=== PATIENT | female | born 1990 | race Caucasian/White ===

== ENCOUNTER 2016-07-18 23:45 | Emergency (ER) | payer OTHER ==
[~2016-07-18 23:45] MED LIST: AMOXICILLIN875 MG PO; MACROBID100 MG DOB; NO MEDICATIONS; NORCO1 TAB 10/3 DOB; PEPCID AC20 M2 PO; PRENATAL PO; PRENATAL1 TA1; PRILOSEC PO; ZOFRAN ODT PO; ZOFRAN ODT4 MG/UDTAB DOB
== END 2016-07-19 00:27 | disposition home or self-care (01) ==
LOC: SED 23:45
DX: J06.9 Acute upper respiratory infection, unspecified (principal)
CPT/HCPCS: 87651; 99282

== ENCOUNTER 2016-07-27 22:17 | Emergency (ER) | payer OTHER | END 2016-07-27 22:20 | disposition home or self-care (01) | LOC: CFTX 22:17 | DX: S61.211A Laceration without foreign body of left index finger without damage to nail, initial encounter (principal); Z23 Encounter for immunization; W45.8XXA Other foreign body or object entering through skin, initial encounter; Y92.009 Unspecified place in unspecified non-institutional (private) residence as the place of occurrence of the external cause | CPT/HCPCS: 90471; 90715; 99283; J2930 ==

== ENCOUNTER 2016-08-02 22:10 | Emergency (ER) | payer OTHER ==
--- NOTE | ~2016-08-02 | CR157 ---
[facility] A Service of [facility] & [facility] RADIOLOGY TEXT RESULTS PATIENT: ALEXA BACK LOCATION: CFTX : 90 UNIT #: [id number] AGE: [address]: Le Son MD SEX: F ORDER DR: [id number] [facility] [address] [place], [place] [address] [id number] E MR#: [id number] Acc #: [id number] NAME: ALEXA BACK : 1990 SEX: F STUDY DATE/TIME: 08/02/2016 22:37 UNIT: [facility] ROOM: STUDY DESCRIPTION: CR Humerus Min 2 View Rt Attending Physician: Le Son M.D. Ordering Physician: Damian Holley D.O. Primary Care Physician: Rosie Grullon M.D. MEDICAL IMAGING REPORT This report is preliminary unless electronic signature is present EXAM Right humerus HISTORY Right upper arm pain, one week beginning 1 week ago. History of tetanus shot. FINDINGS There is no evidence of fracture, dislocation, or radiopaque foreign body. No focal bone lesions are seen. IMPRESSION Negative right humerus. Dictated by... Annabelle Cast M.D. THIS IS AN ELECTRONICALLY VERIFIED REPORT Annabelle Cast M.D. at 08/03/2016 5:48 AM DORITA/jennifer TD: 08/03/2016 05:10 JOB #: [id number] MEDICAL IMAGING REPORT Page 1 of 1 COPY
--- NOTE | ~2016-08-02 | US140 ---
[facility] A Service of [facility] & [facility] RADIOLOGY TEXT RESULTS PATIENT: ALEXA BACK LOCATION: CFTX : 90 UNIT #: [id number] AGE: [address]: Le Son MD SEX: F ORDER DR: [id number] [facility] [address] [place], [place] [address] [id number] E MR#: [id number] Acc #: [id number] NAME: ALEXA BACK : 1990 SEX: F STUDY DATE/TIME: 08/02/2016 22:51 UNIT: [facility] ROOM: STUDY DESCRIPTION: [facility] [place] [place] [employer] Attending Physician: Le Son M.D. Ordering Physician: Damian Holley D.O. Primary Care Physician: Rosie Grullon M.D. MEDICAL IMAGING REPORT This report is preliminary unless electronic signature is present EXAM Right upper extremity venous Doppler HISTORY Right upper extremity pain, history of a tetanus shot last week. FINDINGS 2-D and Doppler evaluation of the right upper extremity demonstrates normal flow and compressibility of the superficial and deep veins of the right upper extremity. No evidence of venous thrombosis. IMPRESSION Normal right upper extremity venous Doppler. Dictated by... Annabelle Cast M.D. THIS IS AN ELECTRONICALLY VERIFIED REPORT Annabelle Cast M.D. at 08/04/2016 10:35 PM DORITA/jennifer TD: 08/03/2016 05:59 JOB #: [id number] MEDICAL IMAGING REPORT Page 1 of 1 COPY
== END 2016-08-02 23:50 | disposition home or self-care (01) ==
LOC: CFTX 22:10
DX: M79.601 Pain in right arm (principal)
CPT/HCPCS: 73060; 84703; 93971; 99284

== ENCOUNTER 2016-08-09 21:39 | Emergency (ER) | payer OTHER ==
[2016-08-09 23:40] LABS: INFLUENZA A NEG (NEG); INFLUENZA B NEG (NEG)
== END 2016-08-10 00:48 | disposition home or self-care (01) ==
LOC: SED 21:39
PROVIDERS: Nurse Practitioner
DX: J06.9 Acute upper respiratory infection, unspecified (principal)
CPT/HCPCS: 87651; 87804; 99283

== ENCOUNTER 2016-10-26 15:36 | Emergency (ER) | payer OTHER ==
[2016-10-26 16:50] LABS: URINE SOURCE CLEAN CATCH
[2016-10-26 16:53] LABS: BASOPHIL% 0.5 % (0-2.5); EOSINOPHIL# 0.1 X10e3 (0-0.7); EOSINOPHIL% 0.8 % (0.0-7.0); HEMATOCRIT 39.7 % (35.0-45.0); HEMOGLOBIN 13.5 gm/dL (12.0-16.0); LYMPHOCYTE# 2.4 X10e3 (1.0-3.5); LYMPHOCYTE% 34.7 % (17.0-45.0); MEAN CELL VOLUME 89.5 FL (83-96); MEAN CORPUSCULAR HEMOGLOBIN 30.5 PG (28-34); MEAN CORPUSCULAR HGB CONC 34.1 g/dL (30-36); MONOCYTE# 0.4 X10e3 (0-1.0); NEUTROPHIL# 4.1 X10e3 (1.5-7.1); PLATELET COUNT 219 X10e3 (140-420); RED BLOOD COUNT 4.43 X10e (3.90-5.30); RED CELL DISTRIBUTION WIDTH 13.3 % (11.0-15.5)
[2016-10-26 17:00] LABS: URINE APPEARANCE HAZY; URINE BILIRUBIN NEG (NEG); URINE BLOOD NEG (NEG); URINE COLOR YELLOW; URINE GLUCOSE NEG (NORM); URINE KETONE NEG (NEG); URINE LEUKOCYTE ESTERASE TRACE (NEG); URINE NITRATE NEG (NEG); URINE PROTEIN NEG (NEG); URINE SPECIFIC GRAVITY 1.015 (1.003-1.035)
[2016-10-26 17:03] LABS: DIFF IND NO
[2016-10-26 17:04] LABS: MICRO INDICATED? YES
[2016-10-26 17:08] LABS: CULTURE INDICATED? YES; URINE BACTERIA NEG (NEG); URINE RBC 0-2 /[HPF] (0-2); URINE SQUAMOUS EPITHELIAL CELL MODERATE /[HPF]
[2016-10-26 17:09] LABS: URINE AMORPHOUS SEDIMENT AMORP PHOSPHATES
[2016-10-26 17:19] LABS: ALBUMIN SERUM 4.1 g/dL (3.5-5.0); ALKALINE PHOSPHATASE 55 U/L (32-92); ALT (SGPT) 13 U/L (10-40); AMYLASE 23 U/L (0-46); AST (SGOT) 13 U/L (10-42); BILIRUBIN,TOTAL 0.7 mg/dL (0.2-2.0); BLOOD UREA NITROGEN 16 mg/dL (9-23); CALCIUM SERUM 8.9 mg/dL (8.4-10.2); CARBON DIOXIDE 28 mmol/L (22-31); CHLORIDE 106 mmol/L (100-111); CREATININE SERUM 0.5 mg/dL (0.6-1.4); GLOM FILT RATE Estimated 133.6 mL/min (>60); GLUCOSE FASTING 87 mg/dL (70-110); LIPASE 25 U/L (22-51); POTASSIUM 3.7 mmol/L (3.5-5.1); PROTEIN TOTAL SERUM 7.7 g/dL (6.0-8.3); SODIUM 139 mmol/L (135-145)
[2016-10-26 17:20] LABS: BILIRUBIN, DIRECT <0.1 mg/dL (0.0-0.2); BILIRUBIN,INDIRECT 0.6 mg/dL (0.0-0.9)
== END 2016-10-26 18:12 | disposition home or self-care (01) ==
LOC: SED 15:36
PROVIDERS: Nurse Practitioner
DX: A08.4 Viral intestinal infection, unspecified (principal)
CPT/HCPCS: 36415; 80048; 80076; 81003; 82150; 83690; 84703; 85025; 87086; 96361; 96374; 96375; 99284; J2405; J2765